=== PATIENT | female | born 1965 | race American Indian/Alaskan Native ===

== ENCOUNTER 2020-12-23 10:59 | Outpatient (CLI) | payer OTHER | END 2020-12-23 11:00 | disposition home or self-care (01) | LOC: PF 10:59 | PROVIDERS: ATTEND Internal Medicine | DX: D86.9 Sarcoidosis, unspecified (principal); J90 Pleural effusion, not elsewhere classified; M19.90 Unspecified osteoarthritis, unspecified site; Z02.71 Encounter for disability determination | CPT/HCPCS: 94010 ==